=== PATIENT | male | born 1955 | race Hispanic/Latino ===

== ENCOUNTER 2016-03-20 00:15 | Emergency (ER) | payer BC ==
[2016-03-20 00:46] LABS: #Basophils 0.1 thou/uL (0.0-0.2); #Eosinphils 0.2 thou/uL (0.0-0.7); #Lymphocytes 1.6 thou/uL (1.20-3.40); #Monocytes 0.7 thou/uL (0.11-0.59); #Neutrophils 4.9 thou/uL (1.40-6.50); %Basophils 1.2 % (0.0-1.0); %Eosinophils 2.1 % (0.0-10.0); %Monocytes 9.1 % (0.0-10.0); Hematocrit 44.9 % (42.0-52.0); White Blood Cell (WBC) Count 7.4 thou/uL (4.8-10.8)
[2016-03-20 00:50] LABS: Prothrombin Time 14.6 SEC (12.0-14.7)
[2016-03-20 00:51] LABS: PTT 26.4 SEC (22.9-36.1)
[2016-03-20 00:52] LABS: Bilirubin Negative (Negative); Blood, Urine Trace (Negative); Glucose, Urine (Dipstick) Negative (Negative); Ketone, Urine Negative (Negative); Nitrite Negative (Negative); Protein, Urine (Dipstick) Negative (Neg-Trace); Urobilinogen 0.2 mg/dL (0.2-1.0)
[2016-03-20 00:59] LABS: Troponin I 0.021 ng/mL (< 0.028)
[2016-03-20 01:01] LABS: RBC/HPF 0-3 HPF (0-3)
[2016-03-20 01:02] LABS: Bacteria/HPF None Seen HPF (None Seen); Methadone Not Detected (NotDetected); Methamphetamine Not Detected (NotDetected); Squamous Epithelial 0-3 HPF (0-3); WBC/HPF None Seen HPF (0-3)
[2016-03-20 01:02] LABS: ALT (SGPT) 23 U/L (0-55); AST (SGOT) 20 U/L (5-34); Alkaline Phosphatase 89 U/L (40-150); Anion Gap 16 mmol/L (10-20); BUN (Urea Nitrogen) 14 mg/dL (8.4-25.7); Bilirubin, Total 0.4 mg/dL (0.2-1.2); Calc. Creatinine Clearance 0 mL/min (70-130); Calcium 9.3 mg/dL (7.8-10.44); Carbon Dioxide 21 mmol/L (22-29); Chloride 100 mmol/L (98-107); Estimated GFR-MDRD 72; Globulin 4.1 g/dL (2.4-3.5); Lipase 41 U/L (8-78); Protein, Total 8.5 g/dL (6.0-8.3)
[2016-03-20] MEDS ORDERED: Potassium Chloride 20 MEQ TAB ONE (01:34)
--- NOTE | 2016-03-20 01:51 | ERRECORD ---
[facility] EMERGENCY RECORD HPI CHEST PAIN CHIEF COMPLAINT: Patient presents for evaluation of chest pain, that was present but has now resolved. (00:40 DHAM) HISTORIAN: History provided by patient, History provided by patient's spouse, , answers many of his questions. (00:40 DHAM) LOCATION: Symptoms are localized, most severe to left lateral chest and axilla, No radiation of pain, Pain has not moved in location over time. (00:40 DHAM) QUALITY: Pain is dull in nature, described as aching, described as pressure-like, Different compared with previous episodes, Completely different, Pt has had intermittant chest pain over the years that previously was in the arms or parasternal area. Last episode of chest pain was 2 years ago and seemed to improve with prilosec. Pt had been off of this for several months and restarted Last monday (5 days ago). He feels like he has a swelling that comes and goes in the left axilla. The pain will start while at rest or with activity and usually lasts about an hour. he reports sometimes he will get some brief tingling below the lower lip bilaterally. This will last 2-3 seconds and then resolve. Pt has had some stress at home over the last week. Last episode of pain more than 2-3 over 10 was about 30 hours ago while at a friend.s house. (00:40 DHAM) SEVERITY: Maximum severity of pain rated as 7/10, Current severity of pain rated as 2/10. (00:40 DHAM) TIME COURSE: Gradual onset of symptoms, 7 days ago, Symptoms are improving, are intermittent, usually lasts about 1 hour. (00:40 DHAM) ASSOCIATED WITH: No associated cough, No associated diaphoresis, No associated fever, No associated nausea, No associated palpitations, No associated shortness of breath, No associated trauma, No associated upper respiratory infection, No associated vomiting, tingling "in my chin for a couple of seconds" then it goes away. (00:40 DHAM) EXACERBATED BY: Patient's condition exacerbated by nothing, Patient's condition exacerbated by can occur at rest or activity. (00:40 DHAM) RELIEVED BY: Patient's condition relieved by time, Patient's condition relieved by took 4 ibuprofen 30 min ago. (00:40 DHAM) RISK FACTORS: Coronary artery disease risk factors, include hypertension, include truncal obesity, Thoracic aortic dissection risk factors, include hypertension, Pulmonary embolism risk factors, not applicable to this patient. (00:40 DHAM) HEART SCORE: Patients history is Moderately Suspicious (1), Patients ECG has Non specific repolarisation disturbance/LBTB/PM (1), Patients age is greater than 45 and less than 65 (1), Patient has 1 or 2 risk factors (1), Total 4. (00:54 DHAM) &a-1R&a+25V*p+0X*[id number]*c202B*c15G*c2P*p-0X&a-25V&a+1R Name: Matthew Elizabeth : 1955 M60 MedRec: [id number] AcctNum: [id number] Prepared: Kym Mar 20, 2016 08:35 by Interface Page 1 of 5 pMD [facility] EMERGENCY RECORD WELLS CRITERIA FOR PE: No clinical signs and symptoms of a DVT (0), Patient does not have, or is likely to not have, a primary diagnosis of PE (0), Patient's heart rate is less than 100 (0), Patient has no history of immobilization within 3 days, nor any surgical history within the past 4 weeks (0), Patient has not had an objectively diagnosed PE or DVT previously (0), Patient does not have hemoptysis (0), Patient has not had treatment for malignancy within the last 6 months, nor palliative (0), Total 0. (00:40 DHAM) E/M CAVEAT: Emergency room caveat invoked due to, HUONG is 1. (00:56 DHAM) ROS CONSTITUTIONAL: Negative constitutional review of systems. (00:40 DHAM) EYES: Negative eye review of systems. (00:40 DHAM) ENT: Negative ears, nose, throat review of systems. (00:40 DHAM) CARDIOVASCULAR: Historian reports chest pain, in the left chest, upper, no radiation, Historian denies diaphoresis, denies dyspnea on exertion, denies exercise intolerance, denies syncope, denies palpitations. (00:40 DHAM) RESPIRATORY: Negative respiratory review of systems, Historian denies cough, denies shortness of breath, denies sputum, denies wheezing. (00:40 DHAM) GI: Negative gastrointestinal review of systems, Historian denies abdominal pain, denies appetite changes, denies diarrhea, denies nausea, denies vomiting. (00:40 DHAM) GENITOURINARY MALE: Negative genitourinary review of systems. (00:40 DHAM) MUSCULOSKELETAL: Negative musculoskeletal review of systems. (00:40 DHAM) SKIN: Negative skin review of systems. (00:40 DHAM) NEUROLOGIC: Historian denies confusion, denies dizziness, denies focal weakness, denies headache, denies lethargy, denies mental status changes, reports paresthesias, denies speech changes. few seconds of tingling in the chin with the pain sometimes. seems bilateral. (00:40 DHAM) ENDOCRINE: Historian denies cold intolerance, denies polydipsia, denies polyuria. (01:09 DHAM) ALLERGIC/IMMUNOLOGIC: Normal allergy/immunologic system review. (00:40 DHAM) PSYCHIATRIC: Historian reports alcohol abuse, denies anxiety, denies depression, denies drug abuse. 6ppd. (00:40 DHAM) PAST MEDICAL HISTORY (00:25 BMAD) MEDICAL HISTORY: Flu vaccine not up to date, Tetanus not up to date, Pneumococcal vaccine not up to date, Past medical history includes history of hypertension, which has been treated, Flu vaccine not up to date, Pneumococcal vaccine not up to date, Past medical &a-1R&a+25V*p+0X*[id number]*c202B*c15G*c2P*p-0X&a-25V&a+1R Name: Matthew Elizabeth : 1955 M60 MedRec: [id number] AcctNum: [id number] Prepared: Kym Mar 20, 2016 08:35 by Interface Page 2 of 5 pMD [facility] EMERGENCY RECORD history includes history of hypertension. MALE SURGICAL HISTORY: Patient has no surgical history, Patient has no surgical history. PSYCHIATRIC HISTORY: No previous psychiatric history, No previous psychiatric history. SOCIAL HISTORY: Patient drinks every day, more than 10 drinks per day, Patient denies drug use, Patient has no smoking history,. KNOWN ALLERGIES No Known Allergies (Unconfirmed) No Known Drug Allergies CURRENT MEDICATIONS (00:26 SIJO) meTOPROLOL succinate: TABLET, EXTENDED RELEASE 24 HR : Strength - 100 mg : ORAL Patient Dose: 50 mg Oral once a day. Aspirin Low Dose: TABLET, DELAYED RELEASE (ENTERIC COATED) : Strength - 81 mg : ORAL Patient Dose: 81 mg Oral once a day. valsartan-hydrochlorothiazide: TABLET : Strength - 160 mg-25 mg : ORAL Patient Dose: Oral once a day. NexIUM: CAPSULE,DELAYED RELEASE (ENTERIC COATED) : Strength - 40 mg : ORAL Patient Dose: 1 cap(s) Oral once a day. VITAL SIGNS VITAL SIGNS: Pulse: 82, Resp: 16, Pain: 3, O2 sat: 99 on Room Air, Time: 03/20/2016 00:16. (00:16 BMAD) BP: 178/84, Temp: 98.1 (Oral), Time: 03/20/2016 00:23. (00:23 BMAD) BP: 158/82, Pulse: 81, Resp: 17, O2 sat: 96 on Room Air, Time: 03/20/2016 00:30. (00:30 BMAD) BP: 152/80, Pulse: 82, Resp: 18, Pain: 0, O2 sat: 98 on Room Air, Time: 03/20/2016 00:49. (00:49 BMAD) BP: 130/72, Pulse: 80, Resp: 15, Pain: 0, O2 sat: 97 on Room Air, Time: 03/20/2016 01:07. (01:07 BMAD) PHYSICAL EXAM (00:40 DHAM) CONSTITUTIONAL: Vital Signs Reviewed, Patient afebrile, Pulse normal, Blood pressure normal bilaterally, Respiratory rate normal, Patient appears non toxic, Patient appears pain free, Patient alert and oriented to person, place and time, Nursing notes reviewed, appears mildly intoxicated. HEAD: Head exam included findings of head atraumatic, normocephalic. EYES: Eye exam normal, Eye exam included findings of eyelids normal to inspection, Pupils equally round and reactive to light, Extraocular muscles intact, Conjunctiva normal, Sclera normal, Eye exam included findings of anterior chamber clear. &a-1R&a+25V*p+0X*i9834H*c202B*c15G*c2P*p-0X&a-25V&a+1R Name: Matthew Elizabeth : 1955 M60 [id number] [id number] Prepared: Kym Mar 20, 2016 08:35 by Interface Page 3 of 5 D [facility] EMERGENCY RECORD ENT: ENT exam normal, Ear exam normal, Nose exam normal, Pharynx exam normal, Uvula exam normal, Tonsil exam normal, Mouth exam normal, teeth normal. NECK: Neck exam normal, Neck exam included findings of normal range of motion, Trachea midline, Thyroid normal, no carotid bruits, no meningeal signs, no jugular venous distention, no cervical adenopathy, no tenderness. RESPIRATORY CHEST: Respiratory and chest exam normal, Respiratory exam included findings of, Breath sounds clear, No wheezing, No rales, No rhonchi, no tenderness. CARDIOVASCULAR: Heart rate regular rate and rhythm, Heart sounds normal, normal S1, normal S2, no murmurs, no rub, no gallop, Point of maximal impulse normal, Carotids normal, Abdominal aorta normal, in size, impulse, no bruit, Pedal pulses normal. ABDOMEN MALE: Abdominal exam normal, Abdominal exam included findings of abdomen nontender, Bowel sounds normal, Liver normal, Spleen normal, no distension, no mass, no peritoneal signs, no rigidity, no guarding, no rebound. BACK: Back exam normal. UPPER EXTREMITY: Upper extremity exam normal. LOWER EXTREMITY: Lower extremity exam normal. NEURO: Neuro exam normal, Kitty coma scale 15, Neuro exam findings include patient oriented to person, place and time, Speech normal, Gait normal, Memory normal, Cranial nerves intact, Deep tendon reflexes normal, no focal motor deficits, no focal sensory deficits, no cerebellar deficits. SKIN: Skin exam included findings of skin warm, dry, and normal in color, no rash. LYMPHATIC: Lymphatic exam normal, Lymphatic exam included findings of cervical nodes normal. PSYCHIATRIC: Psychiatric exam normal, Psychiatric exam included findings of patient oriented to person place and time, Affect, anxious, Judgment normal, Insight normal, Remote memory normal, Recent memory normal, Concentration normal. EKG INTERPRETATION (00:36 DHAM) 12 LEAD EKG INTERPRETATION: 12 lead EKG interpreted by Emergency Department Physician at time of study, 12 lead EKG shows normal sinus rhythm, Rate (beats per minute): 80, with no ectopics, Compared with previous EKG from, 05/21/2013 00:36, Similar to old EKG, Conduction with, complete right bundle branch block, ST segments normal, T waves normal, [place] normal. MEDICATION ADMINISTRATION SUMMARY Drug Name: potassium chloride oral, Dose Ordered: 20 mEq, Route: Oral, Status: Given, Time: 01:38 03/20/2016, Drug Name: Adult Low Dose Aspirin, Dose Ordered: 3 tab(s), Route: Oral, Status: Given, Time: 00:38 03/20/2016, Detailed record available in Medication Service section. &a-1R&a+25V*p+0X*[id number]*c202B*c15G*c2P*p-0X&a-25V&a+1R Name: Matthew Elizabeth : 1955 M60 MedRec: [id number] AcctNum: [id number] Prepared: Kym Mar 20, 2016 08:35 by Interface Page 4 of 5 pMD [facility] EMERGENCY RECORD DOCTOR NOTES (01:18 DHAM) TEXT: Pt's last episode of significant chest pain was 30 hours ago. With the low HUONG and unchanged EKG and reassuring labs, we will d/c and encourage close followup with pcp to consider further cardiac risk stratification. Etiology of hypokalemia likely hctz plus regular alcohol use. see dci. PROBLEM LIST No recorded problems DIAGNOSIS (01:29 DHAM) FINAL: PRIMARY: chest pain, ADDITIONAL: HYPOKALEMIA. PRESCRIPTION No recorded prescriptions DISPOSITION PATIENT: Disposition Type: Discharge, Disposition: *Discharge Home. (01:29 DHAM) Patient left the department. (01:44 SIJO) Story: MADHAV=SHANNA [place], Americo PIMENTEL=MD Justin, Quinn COVARRUBIAS=SHANNA Jones, Freddie &a-1R&a+25V*p+0X*[id number]*c202B*c15G*c2P*p-0X&a-25V&a+1R Name: Matthew Elizabeth : 1955 M60 MedRec: [id number] AcctNum: [id number] Prepared: Kym Mar 20, 2016 08:35 by Interface Page 5 of 5 pMD MTDD
--- NOTE | 2016-03-20 01:57 | PICIS ---
[facility] EMERGENCY RECORD TRIAGE (MonMar 20, 2016 00:20 BMAD) TRIAGE NOTES: pt stating for the last week that he has been experiencing pain/swelling under his L arm whenever he works. (MonMar 20, 2016 00:20 BMAD) PATIENT: NAME: Matthew Elizabeth, AGE: 60, GENDER: male, : Mon1955, TIME OF GREET: MonMar 20, 2016 00:16, PREFERRED LANGUAGE: Burmese, ETHNICITY: or , ECODE BILLING MAP: [facility], SSN: [id number], Zip Code: [address], KG WEIGHT: 113.40, , , PERSON ID: [id number], PAYMENT: EVERETT Camacho, PCP: MD Graham Kyle. (MonMar 20, 2016 00:20 BMAD) PHONE: . (00:31) COMPLAINT: L Rib Pain. (MonMar 20, 2016 00:20 BMAD) ADMISSION: URGENCY: 3 Urgent, ADMISSION SOURCE: Home, TRANSPORT: Walk-in, BED: ER -01. (MonMar 20, 2016 00:20 BMAD) IMMUNIZATIONS: Flu vaccine not up to date, Tetanus not up to date, Pneumococcal vaccine not up to date. (00:25 BMAD) SIRS SCORING: Heart Rate 55-109 (0), Temp range 96.8-101.1 (0), respiratory rate 12-24 (0), Mental Status altered: no (0), Infection or Suspected Infection: No. (00:25 BMAD) TRIAGE SCREENING: Patient denies suicidal ideation, Patient denies presence of domestic violence. (00:25 BMAD) TREATMENTS IN PROGRESS: Medications Given, 800MG MOTRIN 2345. (00:25 BMAD) PROVIDERS: TRIAGE NURSE: Americo Madrid RN. (MonMar 20, 2016 00:20 BMAD) VITAL SIGNS: Pulse 82, Resp 16, Pain 3, O2 Sat 99, on Room Air, Time 03/20/2016 00:16. (00:16 BMAD) BP 178/84, Temp 98.1, (Oral), Time 03/20/2016 00:23. (00:23 BMAD) PREVIOUS VISIT ALLERGIES: No Known Drug Allergies. (Kym Mar 20, 2016 00:20 BMAD) No Known Drug Allergies. (00:25 BMAD) KNOWN ALLERGIES No Known Allergies (Unconfirmed) No Known Drug Allergies CURRENT MEDICATIONS (00:26 SIJO) meTOPROLOL succinate: TABLET, EXTENDED RELEASE 24 HR : Strength - 100 mg : ORAL Patient Dose: 50 mg Oral once a day. Aspirin Low Dose: TABLET, DELAYED RELEASE (ENTERIC COATED) : Strength - 81 mg : ORAL Patient Dose: 81 mg Oral once a day. valsartan-hydrochlorothiazide: TABLET : Strength - 160 mg-25 mg : ORAL Patient Dose: Oral once a day. NexIUM: CAPSULE,DELAYED RELEASE (ENTERIC COATED) : Strength - 40 mg : ORAL &a-1R&a+25V*p+0X*o8583N*c202B*c15G*c2P*p-0X&a-25V&a+1R Name: Matthew Elizabeth : 1955 M60 MedRec: [id number] AcctNum: [id number] Prepared: Kym Mar 20, 2016 08:41 by Interface Page 1 of 14 pMD [facility] EMERGENCY RECORD Patient Dose: 1 cap(s) Oral once a day. VITAL SIGNS VITAL SIGNS: Pulse: 82, Resp: 16, Pain: 3, O2 sat: 99 on Room Air, Time: 03/20/2016 00:16. (00:16 BMAD) BP: 178/84, Temp: 98.1 (Oral), Time: 03/20/2016 00:23. (00:23 BMAD) BP: 158/82, Pulse: 81, Resp: 17, O2 sat: 96 on Room Air, Time: 03/20/2016 00:30. (00:30 BMAD) BP: 152/80, Pulse: 82, Resp: 18, Pain: 0, O2 sat: 98 on Room Air, Time: 03/20/2016 00:49. (00:49 BMAD) BP: 130/72, Pulse: 80, Resp: 15, Pain: 0, O2 sat: 97 on Room Air, Time: 03/20/2016 01:07. 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 PAIN: PAIN IN L RIB/UNDERARM AREA COMES WHENEVER PT IS ACTIVE AND GOES AWAY FTER AN HOUR., No radiation pain, Onset of pain X 1 WEEK, intermittent, on a scale 0-10 patient rates pain as 3, Pain exacerbated by, ambulation, Pain resolved spontaneously. SKIN: Skin assessment findings include skin warm, Skin dry, Skin normal in color. NEURO: Pupils equally round and reactive to light, Able to close eyes, Face symmetrical, Speech normal, no ptosis, no nystagmus, no visual changes, no facial droop, no facial numbness, no swelling, no paresthesias, GCS:, Eye opening: (4) - Spontaneous, Verbal: (5) - Oriented/conversive, Motor: (6) - Obeys commands/Spontaneous, GCS Total: 15, Hand grasps equal, Upper extremity strength strong, no numbness to upper extremities, Lower extremity strength strong, Foot press equal, no numbness to lower extremities, Notes: PT STATING NUMBNESS IN CHIN AREA COMES AND GOES. ENT: Ear assessment findings include ear normal to inspection, Nasal assessment findings include nose normal to inspection, Sinuses normal, Nasal mucosa normal, Mouth and throat assessment findings include mouth inspection normal, Uvula normal, Tonsils normal, Mucous membranes pink, and moist, Able to swallow, Speech normal. RESPIRATORY/CHEST: Breath sounds clear, Respiratory assessment findings include respiratory effort easy, Respirations regular, Conversing normally, Neck and chest exam findings include trachea midline, Chest expansion equal, Chest movement symmetrical. CARDIOVASCULAR: Cardiovascular assessment findings include heart rate normal, Heart rhythm normal sinus, Heart sounds normal, S1, S2, Left radial pulse +3(easily palpated, considered normal), Right radial pulse +3(easily palpated, considered normal). ABDOMEN: Abdomen assessment findings include abdomen symmetrical, Abdomen soft, no associated nausea, no associated vomiting, no associated diarrhea, no associated constipation. &a-1R&a+25V*p+0X*e6701Z*c202B*c15G*c2P*p-0X&a-25V&a+1R Name: Matthew Elizabeth : 1955 M60 MedRec: [id number] AcctNum: [id number] Prepared: Kym Mar 20, 2016 08:41 by Interface Page 2 of 14 pMD [facility] EMERGENCY RECORD NURSING ASSESSMENT: SKIN (00:39 SIJO) SKIN: Skin assessment findings include skin warm, Skin dry, Skin normal in color, Notes: skin clean dry and intact - no breakdown to posterior surface. NURSING PROCEDURE: ATHLETIC AGENT (00:21 BMAD) ATHLETIC AGENT: Patient placed on library monitor, Patient placed on non-invasive blood pressure monitor, with disposable blood pressure cuff applied, Patient placed on continuous pulse oximetry, Adult/pediatric oxisensor applied, Oxygen saturation 100%. NURSING PROCEDURE: DISCHARGE NOTE (01:43 SIJO) DISCHARGE: Patient discharged to home, ambulating without assistance, family driving, accompanied by //partner, Simple or moderate discharge teaching performed, Follow up with PCP at earliest availability. Take medications as directed, Above person(s) verbalized understanding of discharge instructions and follow-up care, Patient treated and evaluated by physician, Notes: Discharge instructions reviewed and signed with good understanding. BELONGINGS: Belongings remain with patient, Valuables remain with patient. NURSING PROCEDURE: EKG CHART (00:20 BMAD) PATIENT IDENTIFIER: Patient actively involved in identification process, Patient's identity verified by patient stating name, Patient's identity verified by patient stating date, Patient's identity verified by hospital ID bracelet, Patient's identity verified by family member. EKG: EKG indicated for L RIB PAIN, 12 lead EKG performed on the left chest, done by MARCI OTERO, first EKG. FOLLOW-UP: After procedure, EKG for interpretation given to Dr. BECKFODR. NURSING PROCEDURE: IV PATIENT IDENITIFIER: Patient actively involved in identification process, Patient's identity verified by patient stating name, Patient's identity verified by patient stating date, Patient's identity verified by hospital ID bracelet. (00:30 BMAD) IV SITE 1: IV therapy indicated for hydration, IV therapy indicated for medication administration, IV established, to the right antecubital, using an 18 gauge catheter, in one attempt, IV site prepped with CHLORAPREP, Saline lock established, Flushed with normal saline (mls): 10. (00:30 BMAD) FOLLOW-UP SITE 1: After procedure, no drainage at IV site, After procedure, no swelling at IV site, After procedure, no redness at IV site, IV discontinued, due to patient being discharged, catheter intact, Notes: IV site secured by 2X2 and tape, bleeding controlled. (01:42 SIJO) &a-1R&a+25V*p+0X*i8190T*c202B*c15G*c2P*p-0X&a-25V&a+1R Name: Matthew Elizabeth : 1955 M60 MedRec: [id number] AcctNum: [id number] Prepared: Kym Mar 20, 2016 08:41 by Interface Page 3 of 14 pMD [facility] EMERGENCY RECORD NURSING PROCEDURE: NURSE NOTES (00:40 SIJO) NURSES NOTES: Patient assisted to bathroom with steady gait. NURSING PROCEDURE: POSITIONING (00:41 SIJO) POSITIONING: Notes: Patient able and encouraged to reposition often. NURSING PROCEDURE: URINE COLLECTION (00:40 SIJO) URINE COLLECTION MALE: Urine collected by void, output amount (mL) 200, urine yellow in color, and clear, no sediment noted, Specimen labeled in the presence of the patient and sent to lab. ORDER DETAILS Order Name: Alcohol, Status: Active, Time: 00:32 03/20/2016, User: LOREN, - Ordered for: MD Beckford Darren, - Entered by: MD Beckford Darren - Kym Mar 20, 2016 00:32, - Quantity: 1, Order Name: B type Natriuretic Peptide, Status: Active, Time: 00:31 03/20/2016, User: LOREN, - Ordered for: MD Beckford Darren, - Entered by: MD Beckford Darren - Sun Mar 20, 2016 00:31, - Quantity: 1, Order Name: ATHLETIC AGENT ED, Status: Done, Time: 00:37 03/20/2016, User: MADHAV, - Ordered for: MD Beckford Darren, - Entered by: MD Beckford Darren - Sun Mar 20, 2016 00:31, - Quantity: 1, Order Name: ATHLETIC AGENT ED, Status: Done, Time: 00:31 03/20/2016, User: MADHAV, - Ordered for: MD Beckford Darren, - Entered by: SHANNA Madrid Blake - Sun Mar 20, 2016 00:31, - Quantity: 1, Order Name: Cardiac Profile w/CKMB & Troponin - I, Status: Active, Time: 00:31 03/20/2016, User: LOREN, - Ordered for: MD Beckford Darren, - Entered by: MD Beckford Darren - Sun Mar 20, 2016 00:31, - Quantity: 1, Order Name: CBC with Differential, Status: Active, Time: 00:31 03/20/2016, User: LOREN, - Ordered for: MD Beckford Darren, - Entered by: MD Beckford Darren - Sun Mar 20, 2016 00:31, - Quantity: 1, Order Name: Comprehensive Metabolic Panel, Status: Active, Time: 00:31 03/20/2016, User: LOREN, - Ordered for: MD Beckford Darren, - Entered by: MD Beckford Darren - Sun Mar 20, 2016 00:31, - Quantity: 1, Order Name: D-Dimer (Quantitative), Status: Active, Time: 00:31 &a-1R&a+25V*p+0X*b3321B*c202B*c15G*c2P*p-0X&a-25V&a+1R Name: Matthew Elizabeth : 1955 M60 MedRec: [id number] AcctNum: [id number] Prepared: Kym Mar 20, 2016 08:41 by Interface Page 4 of 14 pMD [facility] EMERGENCY RECORD 03/20/2016, User: LOREN, - Ordered for: MD Beckford Darren, - Entered by: MD Beckford Darren - Sun Mar 20, 2016 00:31, - Quantity: 1, Order Name: Drug Screen, Urine, Status: Active, Time: 00:31 03/20/2016, User: LOREN, - Ordered for: MD Beckford Darren, - Entered by: MD Beckford Darren - Sun Mar 20, 2016 00:31, - Quantity: 1, Order Name: EKG 12 Lead in Emergency Room, Status: Active, Time: 00:21 03/20/2016, User: MADHAV, - Ordered for: MD Beckford Darren, - Entered by: SHANNA Madrid, Americo [facility] Mar 20, 2016 00:21, - Quantity: 1, Order Name: EKG 12 Lead in Emergency Room, Status: Active, Time: 00:31 03/20/2016, User: LOREN, - Ordered for: MD Beckford Darren, - Entered by: MD Beckford Darren [facility] Mar 20, 2016 00:31, - Quantity: 1, Order Name: ERRT Pulse Oximeter ER, Status: Active, Time: 00:31 03/20/2016, User: LOREN, - Ordered for: MD Beckford Darren, - Entered by: MD Beckford Darren [facility] Mar 20, 2016 00:31, - Quantity: 1, Order Name: Lipase, Status: Active, Time: 00:31 03/20/2016, User: LOREN, - Ordered for: MD Beckford Darren, - Entered by: MD Beckford Darren [facility] Mar 20, 2016 00:31, - Quantity: 1, Order Name: Protime with INR, Status: Active, Time: 00:31 03/20/2016, User: LOREN, - Ordered for: MD Beckford Darren, - Entered by: MD Beckford Darren [facility] Mar 20, 2016 00:31, - Quantity: 1, Order Name: PTT, Status: Active, Time: 00:31 03/20/2016, User: LOREN, - Ordered for: MD Beckford Darren, - Entered by: MD Beckford Darren [facility] Mar 20, 2016 00:31, - Quantity: 1, Order Name: SALINE LOCK, Status: Done, Time: 00:31 03/20/2016, User: MADHAV, - Ordered for: MD Beckford Darren, - Entered by: SHANNA Madrid, [facility] Mar 20, 2016 00:31, - Quantity: 1, Order Name: SALINE LOCK, Status: Done, Time: 00:37 03/20/2016, User: MADHAV, - Ordered for: MD Beckford Darren, - Entered by: MD Beckford Darren [facility] Mar 20, 2016 00:31, - Quantity: 1, Order Name: Urinalysis w/ Rflx Microscopic, Status: Active, Time: 00:31 03/20/2016, User: LOREN, &a-1R&a+25V*p+0X*a4414O*c202B*c15G*c2P*p-0X&a-25V&a+1R Name: Matthew Elizabeth : 1955 M60 MedRec: [id number] AcctNum: [id number] Prepared: MonMar 20, 2016 08:41 by Interface Page 5 of 14 pMD [facility] EMERGENCY RECORD - Ordered for: MD Beckford Darren, - Entered by: MD Beckford Darren - Kym Mar 20, 2016 00:31, - Quantity: 1, Order Name: XR Chest 1 View Portable, Status: Active, Time: 00:31 03/20/2016, User: OSIRIS, - Ordered for: MD Beckford Darren, - Entered by: MD Beckford Darren - Kym Mar 20, 2016 00:31, - Quantity: 1. MEDICATION ADMINISTRATION SUMMARY Drug Name: potassium chloride oral, Dose Ordered: 20 mEq, Route: Oral, Status: Given, Time: 01:38 03/20/2016, Drug Name: Adult Low Dose Aspirin, Dose Ordered: 3 tab(s), Route: Oral, Status: Given, Time: 00:38 03/20/2016, Detailed record available in Medication Service section. MEDICATION SERVICE Adult Low Dose Aspirin: Order: Adult Low Dose Aspirin (aspirin) - Dose: 3 tab(s) : Oral Schedule: Now Ordered by: Quinn Beckford MD Entered by: MD Kym Templeton Mar 20, 2016 00:33 , Acknowledged by: SHANNA Reyes Mar 20, 2016 00:38 Documented as given by: HSANNA Reyes Mar 20, 2016 00:38 Patient, Medication, Dose, Route and Time verified prior to administration. Amount given: 243mg, Site: Medication administered P.O., Correct patient, time, route, dose and medication confirmed prior to administration, Patient advised of actions and side-effects prior to administration, Allergies confirmed and medications reviewed prior to administration, Patient in position of comfort, Side rails up, Cart in lowest position, Family at bedside. potassium chloride oral: Order: potassium chloride oral (potassium chloride) - Dose: 20 mEq : Oral Schedule: Now Ordered by: Quinn Beckford MD Entered by: MD Kym Templeton Mar 20, 2016 01:37 , Acknowledged by: SHANNA Reyes Mar 20, 2016 01:38 Documented as given by: SHANNA Reyes Mar 20, 2016 01:38 Patient, Medication, Dose, Route and Time verified prior to administration. Amount given: 20 meq, Site: Medication administered P.O., Correct patient, time, route, dose and medication confirmed prior to administration, Patient advised of actions and side-effects prior to administration, Allergies confirmed and medications reviewed prior to administration, Administered by SHANNA Frazier. HPI CHEST PAIN CHIEF COMPLAINT: Patient presents for evaluation of chest &a-1R&a+25V*p+0X*k3487H*c202B*c15G*c2P*p-0X&a-25V&a+1R Name: Matthew Elizabeth : 1955 M60 MedRec: [id number] AcctNum: [id number] Prepared: Kym Mar 20, 2016 08:41 by Interface Page 6 of 14 pMD [facility] EMERGENCY RECORD pain, that was present but has now resolved. (00:40 DHAM) HISTORIAN: History provided by patient, History provided by patient's spouse, , answers many of his questions. (00:40 DHAM) LOCATION: Symptoms are localized, most severe to left lateral chest and axilla, No radiation of pain, Pain has not moved in location over time. (00:40 DHAM) QUALITY: Pain is dull in nature, described as aching, described as pressure-like, Different compared with previous episodes, Completely different, Pt has had intermittant chest pain over the years that previously was in the arms or parasternal area. Last episode of chest pain was 2 years ago and seemed to improve with prilosec. Pt had been off of this for several months and restarted Last monday (5 days ago). He feels like he has a swelling that comes and goes in the left axilla. The pain will start while at rest or with activity and usually lasts about an hour. he reports sometimes he will get some brief tingling below the lower lip bilaterally. This will last 2-3 seconds and then resolve. Pt has had some stress at home over the last week. Last episode of pain more than 2-3 over 10 was about 30 hours ago while at a friend.s house. (00:40 DHAM) SEVERITY: Maximum severity of pain rated as 7/10, Current severity of pain rated as 2/10. (00:40 DHAM) TIME COURSE: Gradual onset of symptoms, 7 days ago, Symptoms are improving, are intermittent, usually lasts about 1 hour. (00:40 DHAM) ASSOCIATED WITH: No associated cough, No associated diaphoresis, No associated fever, No associated nausea, No associated palpitations, No associated shortness of breath, No associated trauma, No associated upper respiratory infection, No associated vomiting, tingling "in my chin for a couple of seconds" then it goes away. (00:40 DHAM) EXACERBATED BY: Patient's condition exacerbated by nothing, Patient's condition exacerbated by can occur at rest or activity. (00:40 DHAM) RELIEVED BY: Patient's condition relieved by time, Patient's condition relieved by took 4 ibuprofen 30 min ago. (00:40 DHAM) RISK FACTORS: Coronary artery disease risk factors, include hypertension, include truncal obesity, Thoracic aortic dissection risk factors, include hypertension, Pulmonary embolism risk factors, not applicable to this patient. (00:40 DHAM) HEART SCORE: Patients history is Moderately Suspicious (1), Patients ECG has Non specific repolarisation disturbance/LBTB/PM (1), Patients age is greater than 45 and less than 65 (1), Patient has 1 or 2 risk factors (1), Total 4. (00:54 DHAM) WELLS CRITERIA FOR PE: No clinical signs and symptoms of a DVT (0), Patient does not have, or is likely to not have, a primary &a-1R&a+25V*p+0X*b2777P*c202B*c15G*c2P*p-0X&a-25V&a+1R Name: Matthew Elizabeth : 1955 M60 MedRec: [id number] AcctNum: [id number] Prepared: Kym Mar 20, 2016 08:41 by Interface Page 7 of 14 pMD [facility] EMERGENCY RECORD diagnosis of PE (0), Patient's heart rate is less than 100 (0), Patient has no history of immobilization within 3 days, nor any surgical history within the past 4 weeks (0), Patient has not had an objectively diagnosed PE or DVT previously (0), Patient does not have hemoptysis (0), Patient has not had treatment for malignancy within the last 6 months, nor palliative (0), Total 0. (00:40 DHAM) E/M CAVEAT: Emergency room caveat invoked due to, HUONG is 1. (00:56 DHAM) ROS CONSTITUTIONAL: Negative constitutional review of systems. (00:40 DHAM) EYES: Negative eye review of systems. (00:40 DHAM) ENT: Negative ears, nose, throat review of systems. (00:40 DHAM) CARDIOVASCULAR: Historian reports chest pain, in the left chest, upper, no radiation, Historian denies diaphoresis, denies dyspnea on exertion, denies exercise intolerance, denies syncope, denies palpitations. (00:40 DHAM) RESPIRATORY: Negative respiratory review of systems, Historian denies cough, denies shortness of breath, denies sputum, denies wheezing. (00:40 DHAM) GI: Negative gastrointestinal review of systems, Historian denies abdominal pain, denies appetite changes, denies diarrhea, denies nausea, denies vomiting. (00:40 DHAM) GENITOURINARY MALE: Negative genitourinary review of systems. (00:40 DHAM) MUSCULOSKELETAL: Negative musculoskeletal review of systems. (00:40 DHAM) SKIN: Negative skin review of systems. (00:40 DHAM) NEUROLOGIC: Historian denies confusion, denies dizziness, denies focal weakness, denies headache, denies lethargy, denies mental status changes, reports paresthesias, denies speech changes. few seconds of tingling in the chin with the pain sometimes. seems bilateral. (00:40 DHAM) ENDOCRINE: Historian denies cold intolerance, denies polydipsia, denies polyuria. (01:09 DHAM) ALLERGIC/IMMUNOLOGIC: Normal allergy/immunologic system review. (00:40 DHAM) PSYCHIATRIC: Historian reports alcohol abuse, denies anxiety, denies depression, denies drug abuse. 6ppd. (00:40 DHAM) PAST MEDICAL HISTORY (00:25 BMAD) MEDICAL HISTORY: Flu vaccine not up to date, Tetanus not up to date, Pneumococcal vaccine not up to date, Past medical history includes history of hypertension, which has been treated, Flu vaccine not up to date, Pneumococcal vaccine not up to date, Past medical history includes history of hypertension. MALE SURGICAL HISTORY: Patient has no surgical history, &a-1R&a+25V*p+0X*j3768X*c202B*c15G*c2P*p-0X&a-25V&a+1R Name: Matthew Elizabeth : 1955 M60 MedRec: [id number] AcctNum: [id number] Prepared: Kym Mar 20, 2016 08:41 by Interface Page 8 of 14 pMD [facility] EMERGENCY RECORD Patient has no surgical history. PSYCHIATRIC HISTORY: No previous psychiatric history, No previous psychiatric history. SOCIAL HISTORY: Patient drinks every day, more than 10 drinks per day, Patient denies drug use, Patient has no smoking history,. PHYSICAL EXAM (00:40 DHAM) CONSTITUTIONAL: Vital Signs Reviewed, Patient afebrile, Pulse normal, Blood pressure normal bilaterally, Respiratory rate normal, Patient appears non toxic, Patient appears pain free, Patient alert and oriented to person, place and time, Nursing notes reviewed, appears mildly intoxicated. HEAD: Head exam included findings of head atraumatic, normocephalic. EYES: Eye exam normal, Eye exam included findings of eyelids normal to inspection, Pupils equally round and reactive to light, Extraocular muscles intact, Conjunctiva normal, Sclera normal, Eye exam included findings of anterior chamber clear. ENT: ENT exam normal, Ear exam normal, Nose exam normal, Pharynx exam normal, Uvula exam normal, Tonsil exam normal, Mouth exam normal, teeth normal. NECK: Neck exam normal, Neck exam included findings of normal range of motion, Trachea midline, Thyroid normal, no carotid bruits, no meningeal signs, no jugular venous distention, no cervical adenopathy, no tenderness. RESPIRATORY CHEST: Respiratory and chest exam normal, Respiratory exam included findings of, Breath sounds clear, No wheezing, No rales, No rhonchi, no tenderness. CARDIOVASCULAR: Heart rate regular rate and rhythm, Heart sounds normal, normal S1, normal S2, no murmurs, no rub, no gallop, Point of maximal impulse normal, Carotids normal, Abdominal aorta normal, in size, impulse, no bruit, Pedal pulses normal. ABDOMEN MALE: Abdominal exam normal, Abdominal exam included findings of abdomen nontender, Bowel sounds normal, Liver normal, Spleen normal, no distension, no mass, no peritoneal signs, no rigidity, no guarding, no rebound. BACK: Back exam normal. UPPER EXTREMITY: Upper extremity exam normal. LOWER EXTREMITY: Lower extremity exam normal. NEURO: Neuro exam normal, [place] coma scale 15, Neuro exam findings include patient oriented to person, place and time, Speech normal, Gait normal, Memory normal, Cranial nerves intact, Deep tendon reflexes normal, no focal motor deficits, no focal sensory deficits, no cerebellar deficits. SKIN: Skin exam included findings of skin warm, dry, and normal in color, no rash. LYMPHATIC: Lymphatic exam normal, Lymphatic exam included findings of cervical nodes normal. PSYCHIATRIC: Psychiatric exam normal, Psychiatric exam included &a-1R&a+25V*p+0X*l9746C*c202B*c15G*c2P*p-0X&a-25V&a+1R Name: Matthew Elizabeth : 1955 M60 MedRec: [id number] AcctNum: [id number] Prepared: Kym Mar 20, 2016 08:41 by Interface Page 9 of 14 pMD [facility] EMERG[facility] RECORD findings of patient oriented to person place and time, Affect, anxious, Judgment normal, Insight normal, Remote memory normal, Recent memory normal, Concentration normal. LAB INTERPRETATION (01:38 DHAM) INTERPRETATION: CBC normal, Chemistry abnormal, Potassium decreased, Chemistry otherwise normal, Cardiac enzymes normal, Liver functions normal, PT normal, PTT normal, Lipase normal, Urinalysis normal, Urine toxicology negative, Alcohol level, elevated, D-dimer negative. EVENTS TRANSFER: Triage to Emergency Emergency Room -. (00:20 BMAD) Removed from Emergency Emergency Room -. (01:44 SIJO) EKG INTERPRETATION (00:36 DHAM) 12 LEAD EKG INTERPRETATION: 12 lead EKG interpreted by Emergency Department Physician at time of study, 12 lead EKG shows normal sinus rhythm, Rate (beats per minute): 80, with no ectopics, Compared with previous EKG from, 05/21/2013 00:36, Similar to old EKG, Conduction with, complete right bundle branch block, ST segments normal, T waves normal, [place] normal. O2SAT INTERPRETATION (01:14 DHAM) O2SAT: Single pulse oximetry, Oxygen saturation 97%, on room air, Oxygen saturation interpretation: Normal, No intervention required. DOCTOR NOTES (:18 DHAM) TEXT: Pt's last episode of significant chest pain was 30 hours ago. With the low HUONG and unchanged EKG and reassuring labs, we will d/c and encourage close followup with pcp to consider further cardiac risk stratification. Etiology of hypokalemia likely hctz plus regular alcohol use. see dci. PROBLEM LIST No recorded problems DIAGNOSIS (: DHAM) FINAL: PRIMARY: chest pain, ADDITIONAL: HYPOKALEMIA. DISPOSITION PATIENT: Disposition Type: Discharge, Disposition: *Discharge Home. (: DHAM) Patient left the department. (:44 SIJO) INSTRUCTION (:32 DHAM) DISCHARGE: CHEST PAIN, UNCERTAIN CAUSE, HYPOKALEMIA, ALCOHOL INTOXICATION. FOLLOWUP: MD Gladys, Johnson, [facility], [address] &a-1R&a+25V*p+0X*[id number]*c202B*c15G*c2P*p-0X&a-25V&a+1R Name: Matthew Elizabeth : 1955 M60 MedRec: [id number] AcctNum: [id number] Prepared: Kym Mar 20, 2016 08:41 by Interface Page 10 of 14 [facility] EMERGENCY RECORD [facility], [place] [address], . SPECIAL: Continue your current medications Take your Nexium tonight. See your pcp or your beverage steward in 24 hours to consider further heart testing. Recheck your potassium with your pcp in 24 hours. Return for increased chest pain, shortness of breath or any other concerns. PRESCRIPTION No recorded prescriptions IMAGING *EKG: Image captured from scanner. (00:37 SIJO) *SUPPLY CHARGE SHEET: Image captured from scanner. (:45 SIJO) *DISCHARGE INSTRUCTIONS RECEIPT: Image captured from scanner. (:45 SIJO) ADMIN (08:32 DHAM) DIGITAL SIGNATURE: MD Beckford Darren. RESULTS (01:06 SIJO) LABORATORY: Drug Screen, Urine Collection DT: Kym Mar 20, 2016 00:53, THC/Cannabinoid Screen Not Detected , Range (NotDetected), Phencyclidine (PCP) Not Detected , Range (NotDetected), Cocaine Metabolite Screen Not Detected , Range (NotDetected), Methamphetamine Not Detected , Range (NotDetected), Opiate Screen Not Detected , Range (NotDetected), Amphetamine Not Detected , Range (NotDetected), Benzodiazepine Screen Not Detected , Range (NotDetected), Tricyclic Screen Not Detected , Range (NotDetected), Methadone Not Detected , Range (NotDetected), Barbiturates Screen Not Detected , Range (NotDetected), Oxycodone Screen Not Detected , Range (NotDetected), Propoxyphene Screen Not Detected , Range (NotDetected), Drug Screen Cutoff , Range (), The [employer] Profile-V Panel for Qualitative Drugs of Abuse assays are for, presumptive screening testing only. The drug class and detection limits, are as follows: Drug Class Detection Limit Amphetamine , 500 ng/mL* Barbiturates 200 ng/mL , Benzodiazepines 150 ng/mL* Cocaine 150 ng/mL*, Methamphetamine 500 ng/mL* Methadone 200, ng/mL* Opiates 100 ng/mL* Oxycodone , 100 ng/mL &a-1R&a+25V*p+0X*b3054L*c202B*c15G*c2P*p-0X&a-25V&a+1R Name: Matthew Elizabeth : 1955 M60 MedRec: [id number] AcctNum: [id number] Prepared: Kym Mar 20, 2016 08:41 by Interface Page 11 of 14 [facility] EMERGENCY RECORD PCP 25 ng/mL Propoxyphene , 300 ng/mL Tricyclic Antidepressants 300 ng/mL Cannabinoids (THC) , 50 ng/mL Tests which yield a presumptive positive result must be , tested using a more specific alternate chemical method in order to obtain, a confirmed analytical result. Additional confirmation and identification, may be ordered on a routine basis, if desired. Presumptive positive urines, are held for two weeks. . Alcohol Collection DT: Kym Mar 20, 2016 00:46, Alcohol 113 mg/dL, Range (Less than 10), The pharmacological response to blood alcohol levels may vary from, individual to individual. Negative: Less than 10, mg/dL Toxic: 50 - 100 mg/dL , Depression of COMMUN[employer]S ELECT[employer]ICIAN SUPERVISOR: Greater than 100 mg/dL , Fatalities reported: Greater than 400 mg/dL . Lipase Collection DT: [place] Mar 20, 2016 00:46, Lipase 41 U/L, Range (8-78). Comprehensive Metabolic Panel Collection DT: [place] Mar 20, 2016 00:46, *Sodium 134 - L mmol/L, Range (136-145), *Potassium 3.3 - L mmol/L, Range (3.5-5.1), Chloride 100 mmol/L, Range (98-107), *Carbon Dioxide 21 - L mmol/L, Range (22-29), Anion Gap 16 mmol/L, Range (10-20), BUN (Urea Nitrogen) 14 mg/dL, Range (8.4-25.7), Creatinine 1.06 mg/dL, Range (0.7-1.3), Estimated GFR-MDRD 72 , Reference Range for Estimated GFR: Greater than 90, mL/min/1.73 m2 NOTE: The MDRD equation has not been validated for use, with the elderly (over 70 years of age), women, patients with, serious comorbid condition or persons with extremes of body size, muscle, mass, or nutritional status. , *Glucose 133 - H mg/dL, Range (70-105), Calcium 9.3 mg/dL, Range (7.8-10.44), Bilirubin, Total 0.4 mg/dL, Range (0.2-1.2), *Protein, Total 8.5 - H g/dL, Range (6.0-8.3), NOTE: Plasma values are generally 0.3 to 0.5 g/dL higher &a-1R&a+25V*p+0X*u4510Q*c202B*c15G*c2P*p-0X&a-25V&a+1R Name: Matthew Elizabeth : 1955 M60 MedRec: [id number] AcctNum: [id number] Prepared: [place] Mar 20, 2016 08:41 by Interface Page 12 of 14 [facility] EMERGENCY RECORD than serum values, due to the presence of fibrinogen. , Albumin 4.4 g/dL, Range (3.5-5.0), *Globulin 4.1 - H g/dL, Range (2.4-3.5), *Alb/Glob Ratio 1.1 - L g/dL, Range (1.2-2.2), Alkaline Phosphatase 89 U/L, Range (40-150), AST (SGOT) 20 U/L, Range (5-34), ALT (SGPT) 23 U/L, Range (0-55). B type Natriuretic Peptide Collection DT: [place] Mar 20, 2016 00:46, B type Natriuretic Peptide Less than 10.0 pg/mL, Range (0-100). Urine Microscopic Collection DT: [place] Mar 20, 2016 00:53, RBC/HPF 0-3 HPF, Range (0-3), WBC/HPF None Seen HPF, Range (0-3), Squamous Epithelial 0-3 HPF, Range (0-3), Bacteria/HPF None Seen HPF, Range (None Seen). Urinalysis w/ Rflx Microscopic Collection DT: [place] Mar 20, 2016 00:53, Color Yellow , Range (Yellow), Clarity Clear , Range (Clear), Specific [place], Urine 1.005 , Range (1.002-1.036), pH, Urine 5.5 , Range (5.0-9.0), Leukocyte Negative , Range (Negative), Nitrite Negative , Range (Negative), Protein, Urine (Dipstick) Negative mg/dL, Range (Neg-Trace), Glucose, Urine (Dipstick) Negative mg/dL, Range (Negative), Ketone, Urine Negative mg/dL, Range (Negative), Urobilinogen 0.2 mg/dL, Range (0.2-1.0), Bilirubin Negative , Range (Negative), *Blood, Urine Trace - H , Range (Negative). Cardiac Profile w/CKMB & TropI Collection DT: [place] Mar 20, 2016 00:46, CKMB 6.3 ng/mL, Range (0-6.6), Troponin I 0.021 ng/mL, Range (< 0.028), Reference Range , 0.00 - 0.028 ng/mL Negative 0.029 - 0.29 ng/mL , Indeterminate Greater or Equal to 0.3 ng/mL Strongly suggests [place] , . CBC with Differential Collection DT: [place] Mar 20, 2016 00:45, White Blood Cell (WBC) Count 7.4 thou/uL, Range (4.8-10.8), Red Blood Cell (RBC) Count 5.10 mill/uL, Range (4.70-6.10), Hemoglobin 15.0 g/dL, Range (14.0-18.0), Hematocrit 44.9 %, Range (42.0-52.0), Mean Corpuscular Volume 88.1 fl, Range (80.0-94.0), Mean Corpuscular Hemoglobin 29.4 pg, Range (27.0-31.0), Mean Corpuscular HGB CONC 33.3 g/dL, Range (32.0-36.0), RBC Distribution Width 11.8 %, Range (11.5-14.5), Platelet Count 187 thou/uL, Range (130-400), Mean Platelet Volume 9.0 fL, Range (7.4-10.4), %Neutrophils 66.7 %, Range (42.0-75.0), %Lymphocytes 21.0 %, Range (21.0-51.0), %Monocytes 9.1 %, Range (0.0-10.0), &a-1R&a+25V*p+0X*p3826M*c202B*c15G*c2P*p-0X&a-25V&a+1R Name: Matthew Elizabeth : 1955 M60 MedRec: [id number] AcctNum: [id number] Prepared: Kym Mar 20, 2016 08:41 by Interface Page 13 of 14 [facility] EMERGENCY RECORD %Eosinophils 2.1 %, Range (0.0-10.0), *%Basophils 1.2 - H %, Range (0.0-1.0), #Neutrophils 4.9 thou/uL, Range (1.40-6.50), #Lymphocytes 1.6 thou/uL, Range (1.20-3.40), *#Monocytes 0.7 - H thou/uL, Range (0.11-0.59), #Eosinphils 0.2 thou/uL, Range (0.0-0.7), #Basophils 0.1 thou/uL, Range (0.0-0.2). D-Dimer (Quantitative) Collection DT: [place] Mar 20, 2016 00:45, See comment below , Anticoagulant? NONE Medical Necessity SUSPECT COAGULOPATHY , D-Dimer Test 0.29 *mcg/mL, Range (0.27-0.43), * Reference Range Units: mcg/mL of fibrinogen equivalent, units(FEU) Based upon a retrospective study of [facility] patients in July 2005, a result of Less than 0.44 mcg/mL FEU is, predictive of the absence of a DVT or PE. . PTT Collection DT: [place] Mar 20, 2016 00:45, See comment below , Anticoagulant? NONE Medical Necessity SUSPECT COAGULOPATHY , PTT 26.4 SEC, Range (22.9-36.1). Protime with INR Collection DT: [place] Mar 20, 2016 00:45, See comment below , Anticoagulant? NONE Medical Necessity SUSPECT COAGULOPATHY , Prothrombin Time 14.6 SEC, Range (12.0-14.7), INR-International Normal Ratio 1.1 , ATTENTION: READ CAREFULLY , The, recommended therapeutic ranges for oral anticoagulant treatments are: , , Low Intensity: 1.5 - 2.0 Moderate Intensity: 2.0, - 3.0 High Intensity (1): 2.5 - 3.5 High, Intensity (2): 3.0 - 4.0 CRITICAL: >, 4.0 . Story: MADHAV=SHANNA [place], Americo PIMENTEL=MD Justin, Quinn COVARRUBIAS=SHANNA Jones, Freddie &a-1R&a+25V*p+0X*[id number]*c202B*c15G*c2P*p-0X&a-25V&a+1R Name: Matthew Elizabeth : 1955 M60 MedRec: [id number] AcctNum: [id number] Prepared: Kym Mar 20, 2016 08:41 by Interface Page 14 of 14 pMD [facility]TDD
--- NOTE | 2016-03-20 13:15 | RAD ---
PORTABLE CHEST: Date: 03/20/16 An AP portable film at 0113 hours is compared with the 05/21/13 study. FINDINGS: There has been no adverse interval change. Borderline heart size is about the same. There are no con gestive findings, pleural effusions, or focal pulmonary infiltrates. The trachea is midline and the mediastinum appears normal. IMPRESSION: Borderline heart size with little change since 2013. POS: HOME
== END 2016-03-20 01:39 | disposition home or self-care (01) ==
LOC: BURERS 00:15
DX: R07.9 Chest pain, unspecified (principal); E87.6 Hypokalemia; I10 Essential (primary) hypertension; Z79.82 Long term (current) use of aspirin; Z79.899 Other long term (current) drug therapy
CPT/HCPCS: 71010; 80053; 80306; 80307; 81003; 81015; 82553; 83690; 83880; 84484; 85025; 85379; 85610; 85730; 93005; 94760

== ENCOUNTER 2016-04-18 21:53 | Emergency (ER) | payer BC ==
[2016-04-18] MEDS ORDERED: HYDROcodone/Acetaminophen 5/325 mg Tablet ONE (22:35)
== END 2016-04-18 22:48 | disposition home or self-care (01) ==
LOC: BURERS 21:53
DX: I10 Essential (primary) hypertension (principal); T38.0X5A Adverse effect of glucocorticoids and synthetic analogues, initial encounter; Z79.82 Long term (current) use of aspirin; Z79.899 Other long term (current) drug therapy
CPT/HCPCS: 99283

== ENCOUNTER 2016-06-11 16:18 | Emergency (ER) | payer BC ==
[2016-06-11] MEDS ORDERED: HYDROcodone/Acetaminophen 10/325 mg Tablet ONE (17:31)
[2016-06-11] MEDS ORDERED: Sulfameth/Trimethoprim DS 800-160mg TAB ONE (17:31)
== END 2016-06-11 17:50 | disposition home or self-care (01) ==
LOC: BURERS 16:18
DX: L02.415 Cutaneous abscess of right lower limb (principal); I10 Essential (primary) hypertension
CPT/HCPCS: 10060; 87070; 87077; 87186; 87205; J2001

== ENCOUNTER 2016-06-29 04:11 | Emergency (ER) | payer BC ==
[2016-06-29 04:37] LABS: #Basophils 0.1 thou/uL (0.0-0.2); #Eosinphils 0.2 thou/uL (0.0-0.7); #Lymphocytes 1.7 thou/uL (1.20-3.40); #Monocytes 0.7 thou/uL (0.11-0.59); #Neutrophils 5.3 thou/uL (1.40-6.50); %Basophils 1.2 % (0.0-1.0); %Eosinophils 2.7 % (0.0-10.0); %Lymphocytes 21.3 % (21.0-51.0); %Monocytes 8.4 % (0.0-10.0); %Neutrophils 66.3 % (42.0-75.0); Hemoglobin 13.8 g/dL (14.0-18.0); Mean Corpuscular HGB CONC 35.3 g/dL (32.0-36.0); Mean Corpuscular Hemoglobin 30.7 pg (27.0-31.0); Mean Platelet Volume 8.3 fL (7.4-10.4); Platelet Count 271 thou/uL (130-400); RBC Distribution Width 12.2 % (11.5-14.5); Red Blood Cell (RBC) Count 4.49 mill/uL (4.70-6.10)
[2016-06-29] MEDS ORDERED: Ketorolac Tromethamine 30 MG/ML VIAL ONE (04:39)
[2016-06-29] MEDS ORDERED: Nitroglycerin 0.4 MG TAB (25 Tab Bottle) ONE (04:39)
[2016-06-29 04:49] LABS: ALT (SGPT) 23 U/L (0-55); AST (SGOT) 22 U/L (5-34); Albumin 4.1 g/dL (3.5-5.0); Alkaline Phosphatase 80 U/L (40-150); Anion Gap 16 mmol/L (10-20); BUN (Urea Nitrogen) 12 mg/dL (8.4-25.7); Bilirubin, Total 0.7 mg/dL (0.2-1.2); Calc. Creatinine Clearance 0 mL/min (70-130); Calcium 9.2 mg/dL (7.8-10.44); Carbon Dioxide 24 mmol/L (22-29); Chloride 94 mmol/L (98-107); Estimated GFR-MDRD 69; Globulin 3.8 g/dL (2.4-3.5); Glucose 111 mg/dL (70-105); Potassium 3.6 mmol/L (3.5-5.1); Protein, Total 7.9 g/dL (6.0-8.3); Sodium 130 mmol/L (136-145)
[2016-06-29 04:50] LABS: CKMB 5.6 ng/mL (0-6.6); Troponin I Less than 0.010 ng/mL (< 0.028)
[2016-06-29 05:04] LABS: INR-International Normal Ratio 1.1; PTT 28.7 SEC (22.9-36.1); Prothrombin Time 13.9 SEC (12.0-14.7)
[2016-06-29 06:50] LABS: Troponin I Less than 0.010 ng/mL (< 0.028)
--- NOTE | 2016-06-29 06:58 | RAD ---
PORTABLE CHEST: Date: 06/29/16 An AP portable film at 0427 hours is compared with the 03/20/16 study. FINDINGS: The heart is slightly enlarged, though not by much given the body habitus. There is no adverse porter e since the March study. No edema, pleural effusion, or focal pulmonary infiltrate seen. The trach ea is midline. IMPRESSION: No acute thoracic findings. POS: HOME
== END 2016-06-29 07:45 | disposition home or self-care (01) ==
LOC: BURERS 04:11
DX: R07.82 Intercostal pain (principal); I10 Essential (primary) hypertension; Z79.82 Long term (current) use of aspirin; Z79.899 Other long term (current) drug therapy
CPT/HCPCS: 36415; 71010; 80053; 82553; 83880; 84484; 85025; 85610; 85730; 93005; 94760; 96374; J1885

== ENCOUNTER 2016-08-26 10:14 | Outpatient (CLI) | payer BC ==
[2016-08-26 10:47] LABS: #Basophils 0.1 thou/uL (0.0-0.2); #Eosinphils 0.2 thou/uL (0.0-0.7); #Lymphocytes 1.6 thou/uL (1.20-3.40); #Monocytes 0.7 thou/uL (0.11-0.59); #Neutrophils 3.7 thou/uL (1.40-6.50); %Basophils 1.7 % (0.0-1.0); %Eosinophils 3.8 % (0.0-10.0); %Lymphocytes 25.5 % (21.0-51.0); %Monocytes 10.4 % (0.0-10.0); %Neutrophils 58.7 % (42.0-75.0); Hemoglobin 14.5 g/dL (14.0-18.0); Mean Corpuscular HGB CONC 33.3 g/dL (32.0-36.0); Mean Corpuscular Volume 90.2 fl (80.0-94.0); Platelet Count 198 thou/uL (130-400); RBC Distribution Width 13.2 % (11.5-14.5); Red Blood Cell (RBC) Count 4.84 mill/uL (4.70-6.10); White Blood Cell (WBC) Count 6.3 thou/uL (4.8-10.8)
[2016-08-26 10:55] LABS: ALT (SGPT) 28 U/L (8-55); AST (SGOT) 23 U/L (5-34); Alkaline Phosphatase 79 U/L (40-150); Anion Gap 15 mmol/L (10-20); BUN (Urea Nitrogen) 15 mg/dL (8.4-25.7); Bilirubin, Total 0.6 mg/dL (0.2-1.2); Calc. Creatinine Clearance 0 mL/min (70-130); Carbon Dioxide 24 mmol/L (22-29); Cardiac Risk 3.3 (Less than 4.5); Chloride 105 mmol/L (98-107); Cholesterol 144 mg/dl (< 200 Desired); Estimated GFR-MDRD 71; Globulin 3.6 g/dL (2.4-3.5); Glucose 112 mg/dL (70-105); HDL Cholesterol 43 mg/dL (>60 Neg Risk); LDL Cholesterol, Calculated 90 mg/dL; Potassium 4.2 mmol/L (3.5-5.1); Protein, Total 7.6 g/dL (6.0-8.3); Sodium 140 mmol/L (136-145); Triglycerides 53 mg/dL (Less than 150)
[2016-08-26 11:18] LABS: Hemoglobin A1c 5.7 % (4.0-6.0)
== END 2016-08-26 10:15 | disposition home or self-care (01) ==
LOC: HPCALD 10:14
PROVIDERS: ATTEND Family Medicine
DX: R73.03 Prediabetes (principal); I10 Essential (primary) hypertension
CPT/HCPCS: 36415; 80053; 80061; 83036; 85025

== ENCOUNTER 2017-06-27 23:12 | Emergency (ER) | payer BC ==
[2017-06-27] MEDS ORDERED: Ketorolac Tromethamine 30 MG/ML VIAL ONE (23:34)
[2017-06-27] MEDS ORDERED: Ketorolac Tromethamine 60 MG/2 ML VIAL ONE (23:35)
[2017-06-27] MEDS ORDERED: HYDROcodone/Acetaminophen 5/325 mg Tablet ONE (23:42)
== END 2017-06-27 23:55 | disposition home or self-care (01) ==
LOC: BURERS 23:12
DX: R07.82 Intercostal pain (principal); I10 Essential (primary) hypertension; Z79.82 Long term (current) use of aspirin; Z79.899 Other long term (current) drug therapy
CPT/HCPCS: 96372; J1885

== ENCOUNTER 2017-09-15 16:28 | Outpatient (CLI) | payer BC ==
--- NOTE | 2017-09-15 17:39 | RAD ---
RIGHT LEG TWO VIEWS: 09/15/17 No fracture or periosteal reaction was seen. The tibia and fibula appear normal. IMPRESSION: No acute finding. POS: HOME
== END 2017-09-15 16:29 | disposition home or self-care (01) ==
LOC: BURRAD 16:28
PROVIDERS: ATTEND Family Medicine
DX: M79.604 Pain in right leg (principal)

== ENCOUNTER 2018-11-04 07:55 | Emergency (ER) | payer BC | END 2018-11-04 08:29 | disposition home or self-care (01) | LOC: BURERS 07:55 | DX: B35.3 Tinea pedis (principal); M79.671 Pain in right foot; M79.672 Pain in left foot; I10 Essential (primary) hypertension; E78.5 Hyperlipidemia, unspecified; Z79.82 Long term (current) use of aspirin; Z79.899 Other long term (current) drug therapy | CPT/HCPCS: 99283 ==

== ENCOUNTER 2020-11-16 15:01 | Outpatient (CLI) | payer BC | END 2020-11-16 15:02 | disposition home or self-care (01) | LOC: BURRAD 15:01 | PROVIDERS: ATTEND Clinical Nurse Specialist Medical-Surgical | DX: M25.571 Pain in right ankle and joints of right foot (principal) ==

== ENCOUNTER 2022-11-19 14:00 | Emergency (ER) | payer MEDICARE ==
[2022-11-19 14:29] LABS: #Basophils 0.1 thou/uL (0.0-0.2); #Eosinphils 0.2 thou/uL (0.0-0.7); #Lymphocytes 1.3 thou/uL (1.20-3.40); #Monocytes 0.7 thou/uL (0.11-0.59); #Neutrophils 5.4 thou/uL (1.40-6.50); %Lymphocytes 17.1 % (21.0-51.0); %Monocytes 8.5 % (0.0-10.0); %Neutrophils 70.4 % (42.0-75.0); Hematocrit 44.5 % (42.0-52.0); Hemoglobin 14.1 g/dL (14.0-18.0); Mean Corpuscular HGB CONC 31.8 g/dL (32.0-36.0); Mean Corpuscular Hemoglobin 27.7 pg (27.0-31.0); Mean Corpuscular Volume 87.1 fl (78.0-98.0); Mean Platelet Volume 7.8 fL (7.4-10.4); Platelet Count 252 10x3/uL (130-400); RBC Distribution Width 11.8 % (11.5-14.5); White Blood Cell (WBC) Count 7.6 10x3/uL (4.8-10.8)
[2022-11-19 14:31] LABS: Bilirubin Negative (Negative); Blood, Urine Trace (Negative); Clarity Clear (Clear); Glucose, Urine (Dipstick) Negative (Negative); Ketone, Urine Negative (Negative); Leukocyte Negative (Negative); Nitrite Negative (Negative); Protein, Urine (Dipstick) Negative (Neg-Trace); Specific Gravity, Urine 1.015 (1.005-1.030); Urobilinogen 0.2 mg/dL (Less than 2)
[2022-11-19 14:39] LABS: Bacteria/HPF None Seen HPF (None Seen); CAUTI Indications for Culture Dysuria,urgency,freq; RBC/HPF None Seen HPF (0-3); Squamous Epithelial None Seen HPF (0-3); WBC/HPF 0-3 HPF (0-3)
[2022-11-19 14:40] LABS: Urine Culture Reflex No No
[2022-11-19 14:43] LABS: ALT (SGPT) 27 U/L (8-55); AST (SGOT) 21 U/L (5-34); Albumin 4.2 g/dL (3.4-4.8); Alkaline Phosphatase 91 U/L (40-110); Anion Gap 17 mmol/L (10-20); BUN (Urea Nitrogen) 14 mg/dL (8.4-25.7); Bilirubin, Total 0.3 mg/dL (0.2-1.2); Calc. Creatinine Clearance 0 mL/min (70-130); Calcium 9.2 mg/dL (7.8-10.44); Carbon Dioxide 22 mmol/L (23-31); Chloride 100 mmol/L (98-107); Estimated GFR 82; Globulin 3.6 g/dL (2.4-3.5); Glucose 141 mg/dL (80-115); Potassium 3.6 mmol/L (3.5-5.1); Protein, Total 7.8 g/dL (5.8-8.1); Sodium 135 mmol/L (136-145)
[2022-11-19] MEDS ORDERED: Dexamethasone 10 MG/ML VIAL ONE (16:02)
== END 2022-11-19 16:09 | disposition home or self-care (01) ==
LOC: BURERS 14:00
DX: M54.50 Low back pain, unspecified (principal); I10 Essential (primary) hypertension; G62.9 Polyneuropathy, unspecified
CPT/HCPCS: 36415; 74176; 80053; 81001; 85025; J1100

== ENCOUNTER 2023-04-25 01:02 | Emergency (ER) | payer MEDICARE | END 2023-04-25 01:22 | disposition home or self-care (01) | LOC: BURERS 01:02 | DX: R07.82 Intercostal pain (principal); I10 Essential (primary) hypertension ==

== ENCOUNTER 2024-02-20 08:17 | Emergency (ER) | payer MEDICARE | END 2024-02-20 09:18 | disposition home or self-care (01) | LOC: BURERS 08:17 | DX: S00.83XA Contusion of other part of head, initial encounter (principal); S80.02XA Contusion of left knee, initial encounter; S80.01XA Contusion of right knee, initial encounter; I10 Essential (primary) hypertension; E11.40 Type 2 diabetes mellitus with diabetic neuropathy, unspecified; E66.9 Obesity, unspecified; W18.12XA Fall from or off toilet with subsequent striking against object, initial encounter; Y93.89 Activity, other specified; Y92.002 Bathroom of unspecified non-institutional (private) residence as the place of occurrence of the external cause; Z87.891 Personal history of nicotine dependence | CPT/HCPCS: 99283 ==

== ENCOUNTER 2024-04-15 23:23 | Emergency (ER) | payer MEDICARE, OTHER ==
[~2024-04-15 23:23] MED LIST: Iopamidol 370 76% 100 ML VIAL ONE
[2024-04-15 23:56] LABS: #Basophils 0.1 thou/uL (0.0-0.2); #Eosinophils 0.1 thou/uL (0.0-0.7); #Lymphocytes 1.4 thou/uL (1.20-3.40); #Monocytes 0.8 thou/uL (0.11-0.59); #Neutrophils 8.6 thou/uL (1.40-6.50); %Basophils 0.9 % (0.0-1.0); %Lymphocytes 12.5 % (21.0-51.0); %Monocytes 7.6 % (0.0-10.0); %Neutrophils 78.1 % (42.0-75.0); Hematocrit 43.1 % (42.0-52.0); Hemoglobin 15.4 g/dL (14.0-18.0); Mean Corpuscular HGB CONC 35.9 g/dL (32.0-36.0); Mean Corpuscular Hemoglobin 29.2 pg (27.0-31.0); Mean Corpuscular Volume 81.5 fl (78.0-98.0); Mean Platelet Volume 6.6 fL (7.4-10.4); Platelet Count 263 10x3/uL (130-400); RBC Distribution Width 11.1 % (11.5-14.5); Red Blood Cell (RBC) Count 5.28 mill/uL (4.70-6.10)
[2024-04-15] MEDS ORDERED: Morphine 4 MG/ML VIAL ONE (23:57)
[2024-04-15] MEDS ORDERED: Morphine 2 MG/ML VIAL ONE (23:57)
[2024-04-15] MEDS ORDERED: Ondansetron PF 4 MG/2 ML Vial ONE (23:58)
[2024-04-16 00:11] LABS: ALT (SGPT) 36 U/L (Less than 45); AST (SGOT) 20 U/L (11-34); Alkaline Phosphatase 111 U/L (40-110); Anion Gap 16 mmol/L (10-20); BUN (Urea Nitrogen) 12 mg/dL (8.4-25.7); Bilirubin, Total 0.4 mg/dL (0.3-1.2); Calc. Creatinine Clearance 0 mL/min (70-130); Calcium 9.7 mg/dL (7.8-10.44); Carbon Dioxide 21 mmol/L (23-31); Chloride 99 mmol/L (98-107); Estimated GFR 76; Globulin 3.8 g/dL (2.4-3.5); Glucose 140 mg/dL (80-115); Lipase 31 U/L (8-78); Potassium 2.9 mmol/L (3.5-5.1); Protein, Total 7.8 g/dL (5.8-8.1); Sodium 133 mmol/L (136-145)
[2024-04-16] MEDS ORDERED: Potassium Chloride 20 MEQ TAB ONE (00:53)
[2024-04-16 01:07] LABS: Bilirubin Negative (Negative); Blood, Urine Negative (Negative); Clarity Clear (Clear); Glucose, Urine (Dipstick) Negative (Negative); Ketone, Urine Negative (Negative); Leukocyte Negative (Negative); Nitrite Negative (Negative); Protein, Urine (Dipstick) Negative (Neg-Trace); Urobilinogen 0.2 mg/dL (Less than 2)
[2024-04-16 01:13] LABS: Bacteria/HPF Rare-Few HPF (None Seen); CAUTI Indications for Culture Dysuria,urgency,freq; RBC/HPF None Seen HPF (0-3); Squamous Epithelial 0-3 HPF (0-3); WBC/HPF None Seen HPF (0-3)
[2024-04-16 01:15] LABS: Urine Culture Reflex No No
== END 2024-04-16 02:27 | disposition home or self-care (01) ==
LOC: BURERS 23:23
DX: K59.00 Constipation, unspecified (principal); I10 Essential (primary) hypertension; E11.40 Type 2 diabetes mellitus with diabetic neuropathy, unspecified; E78.5 Hyperlipidemia, unspecified; Z87.891 Personal history of nicotine dependence
CPT/HCPCS: 74177; 80053; 81001; 83605; 83690; 85025; 96374; 96375; J2270; J2272; J2405; Q9967

== ENCOUNTER 2024-11-04 13:36 | Inpatient (IN) | payer MEDICARE, OTHER ==
[2024-11-04 14:17] LABS: #Basophils 0.2 thou/uL (0.0-0.2); #Eosinophils 0.1 thou/uL (0.0-0.7); #Lymphocytes 1.2 thou/uL (1.20-3.40); #Monocytes 1.1 thou/uL (0.11-0.59); #Neutrophils 14.7 thou/uL (1.40-6.50); %Basophils 1.0 % (0.0-1.0); %Eosinophils 0.5 % (0.0-10.0); %Lymphocytes 7.0 % (21.0-51.0); %Monocytes 6.6 % (0.0-10.0); %Neutrophils 84.9 % (42.0-75.0); Hematocrit 41.8 % (42.0-52.0); Hemoglobin 14.9 g/dL (14.0-18.0); Mean Corpuscular Hemoglobin 29.7 pg (27.0-31.0); Mean Corpuscular Volume 83.4 fl (78.0-98.0); Platelet Count 210 10x3/uL (130-400); Red Blood Cell (RBC) Count 5.01 mill/uL (4.70-6.10); White Blood Cell (WBC) Count 17.3 10x3/uL (4.8-10.8)
[2024-11-04 14:35] LABS: ALT (SGPT) 19 U/L (Less than 45); AST (SGOT) 17 U/L (11-34); Albumin 3.8 g/dL (3.1-4.5); Alkaline Phosphatase 79 U/L (40-110); Anion Gap 17 mmol/L (10-20); BUN (Urea Nitrogen) 13 mg/dL (8.4-25.7); Bilirubin, Total 0.4 mg/dL (0.3-1.2); Calc. Creatinine Clearance 0 mL/min (70-130); Calcium 9.1 mg/dL (7.8-10.44); Carbon Dioxide 24 mmol/L (23-31); Chloride 98 mmol/L (98-107); Globulin 3.7 g/dL (2.4-3.5); Glucose 141 mg/dL (80-115); Lipase 16 U/L (8-78); Potassium 4.2 mmol/L (3.5-5.1); Sodium 135 mmol/L (136-145)
[2024-11-04 15:35] LABS: Glucose, Urine (Dipstick) Negative (Negative); Leukocyte Moderate (Negative); Protein, Urine (Dipstick) Negative (Neg-Trace); Specific Gravity, Urine 1.010 (1.005-1.030)
[2024-11-04 15:43] LABS: Bacteria/HPF Rare-Few HPF (None Seen); CAUTI Indications for Culture Pelvic or flank pain; RBC/HPF None Seen HPF (0-3); WBC/HPF 21-50 HPF (0-3)
[2024-11-04 15:44] LABS: Urine Culture Reflex Yes Yes
[2024-11-04 18:47] VITALS: BMI 46.0
[2024-11-04] MEDS: Acetaminophen 500 MG TAB ONE (19:50)
[2024-11-04] MEDS: Ondansetron PF 4 MG/2 ML Vial ONE (19:51)
[2024-11-04] MEDS: cefTRIAXone (ROCEPHIN) 1 GM VIAL ONE (19:52)
[2024-11-04] MEDS: Acetaminophen 325 MG TAB PO PRN (21:07)
[2024-11-04] MEDS ORDERED: Senokot S 8.6-50 MG TAB PO PRN (21:44)
[2024-11-04] MEDS ORDERED: Bisacodyl 10 MG SUPP PR PRN (21:44)
[2024-11-05 05:02] LABS: #Basophils 0.1 thou/uL (0.0-0.2); #Eosinophils 0.1 thou/uL (0.0-0.7); #Lymphocytes 1.8 thou/uL (1.20-3.40); #Monocytes 1.5 thou/uL (0.11-0.59); #Neutrophils 11.9 thou/uL (1.40-6.50); %Basophils 0.6 % (0.0-1.0); %Eosinophils 0.4 % (0.0-10.0); %Lymphocytes 11.9 % (21.0-51.0); %Monocytes 9.7 % (0.0-10.0); %Neutrophils 77.4 % (42.0-75.0); Hematocrit 36.4 % (42.0-52.0); Hemoglobin 13.0 g/dL (14.0-18.0); Mean Corpuscular Hemoglobin 29.9 pg (27.0-31.0); Mean Corpuscular Volume 83.4 fl (78.0-98.0); Platelet Count 197 10x3/uL (130-400); Red Blood Cell (RBC) Count 4.36 mill/uL (4.70-6.10); White Blood Cell (WBC) Count 15.4 10x3/uL (4.8-10.8)
[2024-11-05 05:41] LABS: ALT (SGPT) 17 U/L (Less than 45); AST (SGOT) 14 U/L (11-34); Albumin 3.4 g/dL (3.1-4.5); Alkaline Phosphatase 69 U/L (40-110); Anion Gap 15 mmol/L (10-20); BUN (Urea Nitrogen) 11 mg/dL (8.4-25.7); Bilirubin, Total 0.6 mg/dL (0.3-1.2); Calc. Creatinine Clearance 106 mL/min (70-130); Calcium 8.4 mg/dL (7.8-10.44); Carbon Dioxide 26 mmol/L (23-31); Chloride 103 mmol/L (98-107); Globulin 3.0 g/dL (2.4-3.5); Glucose 112 mg/dL (80-115); Potassium 4.3 mmol/L (3.5-5.1); Sodium 140 mmol/L (136-145)
[2024-11-05] MEDS: IMIPRAMINE HCL 50 MG PO SCH (09:00)
[2024-11-05] MEDS: cefTRIAXone\\ROCEPHIN 2 GM in Sodium Chloride 0.9% 100 ML IVPB SCH (09:40)
[2024-11-05] MEDS: Methocarbamol 500 MG TAB PO SCH (09:44)
[2024-11-05] MEDS: Enoxaparin 40 MG (0.4 mL) SYRINGE SC SCH (09:44)
[2024-11-05] MEDS: Metoprolol Succinate XL 25 MG ER.TAB PO SCH (09:45)
[2024-11-05] MEDS: Aspirin 81 mg Enteric Coated Tablet PO SCH (09:45)
[2024-11-05] MEDS: Spironolactone 25 MG TAB PO SCH (09:45)
[2024-11-05] MEDS: Floranex 1 GM Packet PO SCH (09:45)
[2024-11-05] MEDS: Acetaminophen 500 MG TAB PO PRN (21:22)
[2024-11-06 08:28] LABS: #Basophils 0.1 thou/uL (0.0-0.2); #Eosinophils 0.1 thou/uL (0.0-0.7); #Lymphocytes 1.1 thou/uL (1.20-3.40); #Monocytes 0.6 thou/uL (0.11-0.59); #Neutrophils 6.4 thou/uL (1.40-6.50); %Basophils 0.9 % (0.0-1.0); %Eosinophils 1.1 % (0.0-10.0); %Lymphocytes 13.1 % (21.0-51.0); %Monocytes 7.4 % (0.0-10.0); %Neutrophils 77.6 % (42.0-75.0); Hematocrit 38.7 % (42.0-52.0); Hemoglobin 13.7 g/dL (14.0-18.0); Mean Corpuscular Hemoglobin 29.3 pg (27.0-31.0); Mean Corpuscular Volume 82.8 fl (78.0-98.0); Platelet Count 188 10x3/uL (130-400); Red Blood Cell (RBC) Count 4.68 mill/uL (4.70-6.10); White Blood Cell (WBC) Count 8.3 10x3/uL (4.8-10.8)
[2024-11-06 10:06] VITALS: BP 125/69; TEMP 98.5
[2024-11-06] MEDS: Methocarbamol 500 MG TAB PO PRN (11:05)
[2024-11-06] MEDS ORDERED: IMIPRAMINE HCL 50 MG PO SCH (21:00)
[2024-11-07] MEDS ORDERED: PNEUMOC 20-VAL CONJ-DIP CRM/PF 0.5 ML SYRINGE IM ONE (09:00)
== END 2024-11-06 17:21 | disposition home or self-care (01) | DRG 690 ==
LOC: BURERS 13:36 → BURMED 16:59 → OBSVTOIN 21:44
PROVIDERS: ADMIT Family Medicine; ATTEND Family Medicine
DX: N12 Tubulo-interstitial nephritis, not specified as acute or chronic (principal); I10 Essential (primary) hypertension; E11.9 Type 2 diabetes mellitus without complications; Z98.890 Other specified postprocedural states
CPT/HCPCS: 36415; 36416; 51701; 74177; 80053; 81001; 83605; 83690; 85025; 87040; 87077; 87086; 87186; 87426; 96365; 96375; J0696; J1650; J2270; J2405; J7030; Q9967